=== PATIENT | male | born 1990 | race Two or more races ===

== ENCOUNTER 2024-03-23 15:57 | Emergency (ER) | payer OTHER ==
[~2024-03-23] VITALS: Ht 182.9 cm; Wt 77.2 kg
[2024-03-23] MEDS ORDERED: ACET500T58 PO (19:40)
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
[2024-03-23 20:07] VITALS: BP 167/79; PULSE 100; RESP 16; TEMP 98.6; O2SAT 97
--- NOTE | 2024-03-23 20:07 | DVH ---
EXAM: CT HEAD WITHOUT CONTRAST HISTORY: head injury COMPARISON: None TECHNIQUE: Axial images were obtained and reformatted in coronal and sagittal planes. All CT scans at this medical facility are performed using dose modulation techniques as appropriate t o a performed exam including the following: Automated exposure control was utilized; adjustment of th e MA and/or KV according to patient size; and use of iterative reconstruction technique. CT Dose: CTDI volume is 59.21 mGy. Dose-length product is 1048.15 mGy*cm FINDINGS: Supratentorial Region: No evidence for large acute territorial ischemia. No intracranial hemorrhage is noted. Posterior Fossa: No acute abnormality. Brainstem: Unremarkable. Sellar/Suprasellar Region: Unremarkable. Ventricles, Cisterns, Sulci: Age-appropriate. Orbits: Unremarkable. Paranasal Sinuses: Unremarkable. Mastoid Air Cells: Unremarkable. Vasculature: Unremarkable. Bones/Soft Tissues: No acute abnormality. Other: None. IMPRESSION: 1. No acute intracranial process.
--- NOTE | 2024-03-23 20:11 | DVH ---
INDICATION: left wrist pain TECHNIQUE: 3 radiographic views of the left wrist wrist were obtained. COMPARISON: None Findings/ IMPRESSION: Hairline fracture through the waist of the scaphoid.
--- NOTE | 2024-03-23 20:12 | DVH ---
Procedure: CT CERVICAL WITHOUT CONTRAST 03/23/2024 07:33 PM Indication: neck pain Comparison Study: None. Technique: Axial images were obtained and reformatted in coronal and sagittal planes. All CT scans at this medical facility are performed using dose modulation techniques as appropriate t o a performed exam including the following: Automated exposure control was utilized; adjustment of th e MA and/or KV according to patient size; and use of iterative reconstruction technique. CT Dose: CTDI volume is 16.57 mGy. Dose-length product is 404.9 mGy*cm FINDINGS: Bones: The vertebrae are normal in height. Normal alignment of the vertebrae. Lateral masses C1 and C2 are well aligned. The posterior facet joints are well aligned. Narrowing C4-C7 disc height with di scogenic endplate changes noted. Soft tissues: Paraspinal and prevertebral soft tissues are within normal limits. IMPRESSION: 1. of normal lordosis that could be positional, reflect muscle spasm or pain. Correlate clinically.Re versal 2. No acute osseous abnormality. 3. Multilevel degenerative disc disease.
--- NOTE | 2024-03-23 20:14 | DVH ---
XY L FOOT 3 VIEW XRAY, INDICATION: left foot pain TECHNICAL DATA: Frontal, oblique and lateral views were obtained of the left foot. COMPARISON: None FINDINGS: No fracture is identified. Joint spaces are maintained. Alignment is anatomic. The hallux sesamoids a ppear normal. Soft tissues are within normal limits. IMPRESSION: No acute fracture or dislocation of the left foot.
[2024-03-23] MEDS ORDERED: CYCL-614 PO (20:27)
== END 2024-03-23 20:44 | disposition home or self-care (01) ==
LOC: ER 15:57 → EDBD 15:57 → ER 20:44
DX: S62.002A Unspecified fracture of navicular [scaphoid] bone of left wrist, initial encounter for closed fracture (principal); S16.1XXA Strain of muscle, fascia and tendon at neck level, initial encounter; S90.32XA Contusion of left foot, initial encounter; S09.90XA Unspecified injury of head, initial encounter; M50.30 Other cervical disc degeneration, unspecified cervical region; Z79.899 Other long term (current) drug therapy; V29.99XA Rider (driver) (passenger) of other motorcycle injured in unspecified traffic accident, initial encounter; Y93.55 Activity, bike riding; Y92.89 Other specified places as the place of occurrence of the external cause; Y99.8 Other external cause status
CPT/HCPCS: 29125; 70450; 72125; 73110; 73630